=== PATIENT | female | born 1935 | race Caucasian/White ===

== ENCOUNTER 2016-12-31 13:54 | Emergency (ER) | payer MEDICARE, MEDICAID ==
[~2016-12-31] VITALS: Ht 167.6 cm; Wt 117.9 kg
[~2016-12-31 13:54] MED LIST: ACETAMINOPHEN-H1 TA2 PO; ACTOS15 MG PO; ALKA-SELTZER AN1 CAP PO; ALPHAGAN-P 0.2%5 ML OP; AMARYL4 MG PO; ANACIN; ANACIN PO; ASPIRIN ADULT L81 M1 PO; ATENOLOL25 MG PO; BENTYL10 MG PO; CALCIUM ACETAT667 MG PO; CEFEPIME2 GM IV; CIPRO250 MG PO; COLACE100 MG PO; COZAAR25 MG PO; COZAAR50 MG PO; DIALYVITE 8001 TAB PO; DIALYVITE1 TAB PO; DULCOLAX5 M1 PO; DUONEB 3 MG/3 ML3 M1 INH; EPOGEN2000 U/ML; ERGOCALCIFER50000 IU PO; GLIPIZIDE XL5 M1 PO; GLIPIZIDE5 MG PO; GLUCOTROL5 MG PO; GLYBURIDE5 MG; GLYBURIDE5 MG PO; HUMALOG100 U/ML SC; HYDROCODONE/ACE1 T14 PO; IMODIUM2 MG PO; LOMOTIL 0.025 M1 TA1 PO; MAGNESIUM OXID400 MG PO; MASON NATURAL2000 IU PO; METOPROLOL SR50 MG PO; METOPROLOL SUCC50 M1 PO; METOPROLOL SUCC50 M2 PO; MICRONASE5 MG PO; MIDODRINE HCL10 MG PO; MIRALAX POWDER17 G1 PO; MIRALAX17 GM PO; MULTI VITAMINS1 TAB PO; NEPHROCAPS1 SGL PO; NORCO 325 MG-51 TAB PO; OSCAL,OYSTER S500 MG; OYSTER SHELL C500 M2 PO; PHOS LO667 MG PO; PHOSLO667 M1; PHOSLO667 M1 PO; PHOSLO667 MG PO; PROTONIX TR40 MG PO; SENSIPAR30 MG PO; SONATA10 MG PO; SYMBICORT1 AE1 IH; TENORMIN25 MG PO; TRAMADOL HCL50 MG PO; TRIPHROCAPS PO; TYLENOL650 M1 PO; VANCOCIN HCL500 MG IV; VICODIN 5/500 505 MG PO; VICODIN ES 7501 TA1 PO; VITAMIN B12-FO1 EACH PO; VITAMIN C500 MG PO; VITAMIN D22000 UNIT PO; VITAMIN D50000 I3 PO; XALATAN 0.005%2.5 ML OD; XANAX0.25 MG PO; ZINC SULFATE PO; ZOFRAN ODT4 MG SL; Zofran4 MG PO; [UNRECOGNIZED DRUG - OTHER]; [UNRECOGNIZED DRUG - OTHER] PO
[2016-12-31 13:59] VITALS: BP 97/46
[2016-12-31 15:08] LABS: BASO # 0.1 10*3/uL (0.0-0.1); BASO % 0.5 % (0.0-1.0); EOS # 0.4 10*3/uL (0.0-0.4); EOS % 2.9 % (1.0-4.0); HEMATOCRIT 30.7 % (37.0-47.0); HEMOGLOBIN 9.8 g/dl (12.0-16.0); IG # 0.2 10*3/uL (0.0-0.1); LYMPH # 1.3 10*3/uL (1.3-4.4); LYMPH % 9.7 % (27.0-41.0); MEAN CELL VOLUME 100.3 fl (81.0-99.0); MEAN CORPUSCULAR HGB CONC 31.9 g/dl (33.0-37.0); MEAN PLATELET VOLUME 10.4 fl (9.6-12.3); MONO # 1.2 10*3/uL (0.1-1.0); NEUT # 10.2 10*3/uL (2.3-7.9); NEUT % 76.6 % (47.0-73.0); PLATELET COUNT AUTOMATED 273 10*3/uL (130-400); RED BLOOD COUNT 3.06 10*6/uL (4.10-5.10); RED CELL DISTRI WIDTH 13.5 % (0-14.5); WHITE BLOOD COUNT 13.3 10*3/uL (4.8-10.8)
[2016-12-31 15:23] LABS: BILIRUBIN, TOTAL 0.2 mg/dl (0.2-1.0); POTASSIUM 3.8 mmol/L (3.5-5.1); TOTAL PROTEIN 7.4 gm/dL (6.4-8.2)
== END 2016-12-31 18:12 ==
LOC: ED 13:54
PROVIDERS: Registered Nurse
DX: N18.6 End stage renal disease (principal); Z88.0 Allergy status to penicillin; Z88.1 Allergy status to other antibiotic agents; Z88.2 Allergy status to sulfonamides; Z79.899 Other long term (current) drug therapy; Z79.82 Long term (current) use of aspirin; W07.XXXA Fall from chair, initial encounter; Y93.89 Activity, other specified; Y92.129 Unspecified place in nursing home as the place of occurrence of the external cause; Y99.9 Unspecified external cause status

== ENCOUNTER 2017-01-14 10:32 | Inpatient (IN) | payer MEDICARE, MEDICAID ==
[~2017-01-14] VITALS: Ht 172.7 cm; Wt 123.0 kg
--- NOTE | ~2017-01-14 | DS ---
[place], [place] DISCHARGE SUMMARY NAME: MANUEL CAMPOS [facility] #: [id number] UNIT #: [id number] ROOM: 510 DOCTOR: FREEDOM DEAN MD BIRTHDATE: [birth year] DOS: 01/16/2017 DISCHARGE DIAGNOSES: 1. The patient has significant chest pains from rib fractures from CPR. 2. The patient with episode of loss of consciousness and resuscitation. 3. Pacemaker placement. 4. Chronic hypotension. 5. End-stage kidney disease, the patient on hemodialysis. 6. Type 2 diabetes mellitus. 7. Bilateral knee pains and osteoarthritis. 8. History of glaucoma. 9. History of chronic pain syndrome. 10. Chronic gouty arthritis. 11. Adult failure to thrive and inability to ambulate. HOSPITAL COURSE: 1. The patient was at the dialysis center undergoing hemodialysis for 2 hours according to her when she became unresponsive and she underwent CPR for about 2 minutes when she woke up. The patient ended up having rib fractures apparently related to the CPR and had significant chest pains. The patient was brought to the Emergency Department and admitted and kept on a vendor specialist with a DNR-CC code status. The patient shows paced rhythm with 100% capture and Cardiology consult was obtained. The patient has done very well and is asymptomatic except for her significant chest pains whenever she moves or takes in a deep breath. The patient is already on Vicodin as needed for pain control and I am giving her a dose of Dilaudid prior to sending her back to the detention to keep her comfortable and I will keep her on p.r.n. morphine also to keep her comfortable at the detention. 2. End-stage kidney disease. The patient remains on hemodialysis 3 days a week. 3. Type 2 diabetes mellitus. Blood sugars appeared to be reasonably controlled. The patient was continued on hemodialysis. 4. The patient has leukocytosis with white cell count of 18,000 without any significant left shift, but she has no signs of infection at this time, no cough, no fever. Her blood cultures came out to be negative and she has no urinary symptoms. 5. CT of the chest, abdomen and pelvis showed bilateral rib fractures, but no pathology otherwise and the chest x-ray showed clear lungs. DISCHARGE MANAGEMENT: Morphine 5 mg every 4 hours as needed for pain control, midodrine 10 mg daily, aspirin 81 mg a day, glimepiride 4 mg a day, dicyclomine 10 mg t.i.d., calcium acetate 667 mg t.i.d. with meals, Vicodin p.r.n. and Ambien 5 mg at bedtime p.r.n. DISPOSITION: The patient is being sent back to [facility]. [place], [place] DISCHARGE SUMMARY NAME: MANUEL CAMPOS UNIT #: [id number] ROOM: [facility] DOCTOR: FREEDOM DEAN MD BIRTHDATE: [birth year] FREEDOM DEAN MD CM:ANDREA 1604 [id number] FREEDOM DEAN MD 01/16/17 2341 interface
--- NOTE | ~2017-01-14 | EKG ---
[place], [place] ELECTROCARDIOGRAM [id number] #: [id number] ROOM: [facility] DOCTOR: CK CALDERON MD BIRTHDATE: [birth year] DOS: 01/14/2017 TIME: 10:30 a.m. FINDINGS: Normal sinus rhythm, low voltage in limb leads, occasional atrial premature contraction. Poor precordial R-wave progression, abnormal electrocardiogram. CK CALDERON MD CM:EKGRPT:ELECTROCARDIOGRAM REPORT 50 36 CK CALDERON MD
--- NOTE | ~2017-01-14 | WRIGHTHP ---
[place], [place] PATIENT HISTORY AND PHYSICAL EXAM NAME: MANUEL CAMPOS [facility] #: [id number] UNIT #: [id number] ROOM: 510 DOCTOR: FREEDOM DEAN MD BIRTHDATE: [birth year] DOS: 01/15/2017 HISTORY OF PRESENT ILLNESS: The patient is an 81-year-old female with a past medical history of, 1. End-stage kidney disease, on hemodialysis. 2. Type 2 diabetes mellitus. 3. Adult failure to thrive and inability to ambulate. 4. Chronic hypotension. 5. History of bradycardia and pacemaker placement. 6. History of chronic gouty arthritis. 7. History of chronic pain syndrome. 8. History of glaucoma. 9. Bilateral knee pains and osteoarthritis. HOME MEDICATIONS: The patient takes midodrine, aspirin, glimepiride, dicyclomine, calcium, Tylenol, Vicodin, and Ambien. ALLERGIES: KNOWN ALLERGIES TO PENICILLIN, SULFA, BACTRIM. FAMILY HISTORY: Noncontributory. The patient with episode of loss of consciousness. The patient was thought to be hypotensive and a CPR was started, but the patient apparently woke up after 2 minutes of CPR. The patient was apparently a DNR-CC when she was undergoing hemodialysis at the dialysis center where she became hypotensive and unresponsive. The patient was brought to the Emergency Department and recommended for admission and further management. The patient remains in a paced rhythm and she is asymptomatic except for pain in her chest, which patient says she developed rib fractures from the CPR. The patient is not complaining of shortness of breath. No other GI or urinary symptoms. PHYSICAL EXAMINATION: GENERAL: Alert and oriented x 3. Generalized weakness, morbid obesity. HEENT AND NECK: Extraocular movements are intact. Sclerae are anicteric. Oral mucosa is moist and clean. No obvious facial weakness. Neck is supple without any lymphadenopathy. No thyromegaly. No JVD. No carotid arterial bruits. LUNGS: Clear to auscultation. No wheezing. No rhonchi. CARDIOVASCULAR SYSTEM: Heart rate is regular in rate and rhythm. S1 and S2 normally audible. No significant murmur or any other abnormal cardiac sounds. ABDOMEN: Soft, nontender. No obvious organomegaly. Bowel sounds are present. No obvious herniation. EXTREMITIES: Without significant cyanosis or edema. Warm to touch. CENTRAL NERVOUS SYSTEM: Alert and oriented x 3. Cranial nerves II-XII are intact. Speech is normal. The patient is able to move all extremities. Normal muscle strength. Deep tendon reflexes are equal on both sides. Plantars were downgoing. LABORATORY DATA: Leukocytosis. White cell count 18,000; hemoglobin 9.6. Lactic acid level was normal. IMPRESSION: The patient with episode of loss of consciousness. Apparently [place], [place] PATIENT HISTORY AND PHYSICAL EXAM NAME: MANUEL CAMPOS [facility] #: [id number] UNIT #: [id number] ROOM: [facility] DOCTOR: FREEDOM DEAN MD BIRTHDATE: [birth year] underwent CPR for 2 minutes, but she woke up. The patient has history of chronic hypotension, now blood pressure generally stays in the low and she has a pacemaker in place with 100% capture. The patient maintains a DNR comfort care code status and she is doing well now except for chest pain where she had suffered bilateral rib fractures. 1. Bilateral rib fractures, apparently probably secondary to CPR with some pain. 2. End-stage kidney disease and kidney failure. The patient on hemodialysis. The patient was seen by Dr. Abdalla, her town marshal. 3. Type 2 diabetes mellitus, we will monitor blood sugars and treat accordingly. The patient to be kept on a no concentrated sweet diet. FREEDOM DEAN MD CM:HISPHYS:PATIENT HISTORY AND PHYSICAL EXAMINATION 52 49 FREEDOM DEAN MD 01/15/172150 interface
--- NOTE | ~2017-01-14 | CON ---
[place], [place] REPORT OF CONSULTATION NAME: MANUEL CAMPOS [facility] #: [id number] UNIT #: [id number] ROOM: 510 DOCTOR: JUN COULTER MD BIRTHDATE: [birth year] DOS: 01/15/2017 NEPHROLOGY CONSULTATION REASON FOR CONSULTATION: Management of dialysis. HISTORY OF PRESENT ILLNESS: The patient is an 81-year-old female. She has a past medical history of end-stage renal disease. She undergoes dialysis Tuesday, Tuesday and Tuesday at the [facility] under the care of our practice of [facility]. She typically sees my partner, Dr. Dior. The patient has a right tunneled dialysis catheter for access and had a rather recent right upper extremity AV graft created. She has a history of diabetes, glaucoma, gout, anemia, vitamin D deficiency and chronic hypotension as well as hyperphosphatemia. Apparently, she was sent to the hospital from dialysis yesterday following a cardiac arrest. She apparently did receive CPR and then woke up and was transferred to the ER. She is being admitted for further care. She was awake and alert and is complaining of pain and difficulty breathing because of the chest compressions. Apparently, she has some rib fractures. She denied nausea, vomiting, fevers, chills or night sweats. Exact details of what happened in the cardiac arrest is not quite clear. She did not complete her entire dialysis. ALLERGIES: LISTED TO PENICILLIN, BACTRIM, AND SULFA DRUGS. MEDICATIONS: Medications were reviewed and listed in the chart/records. PAST MEDICAL HISTORY: 1. End-stage renal disease on hemodialysis as stated above. 2. Anemia of chronic disease. 3. Hyperphosphatemia. 4. Pacemaker placement. 5. Diabetes. 6. Chronic hypotension. 7. Tunneled dialysis catheter placement. 8. Recent right upper extremity AV graft. FAMILY HISTORY: Negative for chronic kidney disease, otherwise noncontributory. SOCIAL HISTORY: No current tobacco, alcohol or illicit drugs. REVIEW OF SYSTEMS: As per HPI, otherwise a 10-point review of systems was reviewed and was negative. PHYSICAL EXAMINATION: VITAL SIGNS: Temperature is 97.8, pulse 74, respiratory rate 20, blood pressure 100/48. GENERAL: She is awake, alert, in no acute distress. HEENT: Shows no JVD. Sclerae are anicteric. Mucous membranes appear dry. Pharynx is clear. NECK: Supple. Trachea is midline. No neck lymphadenopathy. There is no [place], [place] REPORT OF CONSULTATION NAME: MANUEL CAMPOS UNIT #: [id number] ROOM: [facility] DOCTOR: JUN COULTER MD BIRTHDATE: [birth year] thyromegaly. LUNGS: Diminished breath sounds. There is no appreciable wheeze. She is not using accessory muscles of respiration. HEART: Normal S1, S2. No rub, thrill or gallop. ABDOMEN: Soft, nontender. There is no organomegaly or rigidity. There is no rebound or guarding. There is no CVA tenderness. EXTREMITIES: Had trace lower extremity edema. There was noted right upper extremity edema. Distal pulses are 2+. SKIN: Showed no overt rash. There is no petechiae or purpura. Skin temperature is warm. NEUROLOGIC: She is awake, alert and following commands. LABORATORY DATA: Hemoglobin 9.6, white count of 18.1, platelets 249. Lactic acid was 1.8. BUN 16, creatinine of 5.0, potassium 3.5, sodium 137, these labs were drawn yesterday. IMPRESSION: 1. End-stage renal disease on hemodialysis Tuesday, Tuesday and Tuesday through a tunneled dialysis catheter. 2. Anemia of chronic disease. 3. Syncopal episode/cardiac arrest, details unclear. 4. Chronic hypotension. 5. Leukocytosis. 6. Rib fractures bilaterally. PLAN: 1. We will continue dialysis as per her normal schedule. We will attempt to use her AV graft if feasible as per protocol of the dialysis unit. 2. Dose meds for end-stage renal disease. 3. Give as needed erythropoietin stimulating agents with dialysis. 4. If her leukocytosis persists, check blood cultures. 5. Continue supportive care. Pain control for her fractures and rib pain. Thank you for this consultation. We will follow with you. JUN COULTER MD CM:CONSTR:REPORT OF CONSULTATION 1442 01/15/17 1601 interface
[2017-01-14 10:32] VITALS: BP 88/44
[2017-01-14 11:03] LABS: HEMATOCRIT 30.2 % (37.0-47.0); HEMOGLOBIN 9.6 g/dl (12.0-16.0); MEAN CELL VOLUME 101.7 fl (81.0-99.0); MEAN CORPUSCULAR HGB 32.3 pg (27.0-31.0); MEAN CORPUSCULAR HGB CONC 31.8 g/dl (33.0-37.0); PLATELET COUNT AUTOMATED 249 10*3/uL (130-400); RED BLOOD COUNT 2.97 10*6/uL (4.10-5.10); RED CELL DISTRI WIDTH 15.2 % (0-14.5); WHITE BLOOD COUNT 18.1 10*3/uL (4.8-10.8)
[2017-01-14 11:21] VITALS: BP 92/35
[2017-01-14 11:21] LABS: BILIRUBIN, TOTAL 0.3 mg/dl (0.2-1.0); C-REACTIVE PROTEIN 5.87 MG/DL (0-0.3); CKMB 0.9 ng/ml (0.5-3.6); MAGNESIUM 2.2 mg/dL (1.5-2.1); POTASSIUM 3.5 mmol/L (3.5-5.1)
[2017-01-14 11:24] LABS: PROTHROMBIN TIME 10.5 SECONDS (9.0-12.4); TROPONIN I 0.103 ng/ml (<0.045)
[2017-01-14 11:25] LABS: EOSINOPHIL # 1.1 10*3/uL (0-0.4); EOSINOPHILS 6 % (1-4); LYMPHOCYTE # 3.4 10*3/uL (1.3-4.4); MONOCYTE # 0.9 10*3/uL (0.1-1.0); NEUTROPHIL # 12.7 10*3/uL (2.3-7.9); NEUTROPHILS 70 % (47-73); PLATELET SUFFICIENCY NORMAL (NORMAL); TOTAL CELLS COUNTED 100 #CELLS
[2017-01-14 11:51] VITALS: BP 132/88
[2017-01-14 12:41] VITALS: BP 97/28
[2017-01-14 13:00] LABS: LA>2 REFLEX 2 HR DRAW NOW
[2017-01-14 13:16] VITALS: BP 86/52
[2017-01-14 13:22] LABS: LA>2 RFLX FOLLOW UP AT 2 HRS 2.2 mmol/L (0.4-2.0)
[2017-01-14] MEDS ORDERED: MAPAP325 MG PO (13:29)
[2017-01-14] MEDS ORDERED: HYDROCODONE BIT1 T11 PO ×2 (13:29→16:36)
[2017-01-14] MEDS ORDERED: ASPIRIN81 M1 PO (13:29)
[2017-01-14] MEDS ORDERED: DAILYVITE (13:30)
[2017-01-14] MEDS ORDERED: RENAL PO (13:31)
[2017-01-14] MEDS ORDERED: CALCIUM ACETAT667 M2 PO (13:31)
[2017-01-14] MEDS ORDERED: VITAMIN D50000 I3 PO (13:32)
[2017-01-14] MEDS ORDERED: DICYCLOMINE HCL10 MG PO (13:32)
[2017-01-14] MEDS ORDERED: AMARYL4 MG PO (13:32)
[2017-01-14] MEDS ORDERED: MIDODRINE HCL10 MG PO (13:33)
[2017-01-14 15:12] LABS: LA>2 REFLEX 4 HR DRAW NOW
[2017-01-14 16:00] VITALS: BP 73/40
[2017-01-15] VITALS (8 sets, daily range): BP systolic 83–133; BP diastolic 45–88
[2017-01-16 00:11] VITALS: BP 92/68
[2017-01-16 06:22] LABS: HEMATOCRIT 28.6 % (37.0-47.0); HEMOGLOBIN 8.9 g/dl (12.0-16.0); MEAN CELL VOLUME 101.8 fl (81.0-99.0); MEAN CORPUSCULAR HGB 31.7 pg (27.0-31.0); MEAN CORPUSCULAR HGB CONC 31.1 g/dl (33.0-37.0); MEAN PLATELET VOLUME 10.9 fl (9.6-12.3); NUCLEATED RED BLOOD CELL 0.1 % (0.0-0.0); PLATELET COUNT AUTOMATED 248 10*3/uL (130-400); RED BLOOD COUNT 2.81 10*6/uL (4.10-5.10); WHITE BLOOD COUNT 18.4 10*3/uL (4.8-10.8)
[2017-01-16 06:47] LABS: BASOPHIL # 0.4 10*3/uL (0-0.1); BASOPHILS 2 % (0-1); EOSINOPHIL # 0.4 10*3/uL (0-0.4); EOSINOPHILS 2 % (1-4); LYMPHOCYTE # 4.4 10*3/uL (1.3-4.4); MONOCYTE # 0.7 10*3/uL (0.1-1.0); MYELOCYTES 1 % (0-0); NEUTROPHIL # 12.3 10*3/uL (2.3-7.9); NEUTROPHILS 67 % (47-73); PLATELET SUFFICIENCY NORMAL (NORMAL); POLYCHROMASIA SLIGHT; TOTAL CELLS COUNTED 100 #CELLS
[2017-01-16 08:00] VITALS: BP 98/49
[2017-01-16 12:00] VITALS: BP 103/36
[2017-01-16] MEDS ORDERED: MORPHINE S20 MG/1 ML PO (15:42)
[2017-01-16 16:00] VITALS: BP 94/56
== END 2017-01-16 18:39 | DRG 640 ==
LOC: ED 10:32 → EDHOLD 15:11 → 5E 15:28
PROVIDERS: Internal Medicine; Student in an Organized Health Care Education/Training Program
DX: E86.0 Dehydration (principal); N18.6 End stage renal disease; S22.43XA Multiple fractures of ribs, bilateral, initial encounter for closed fracture; I12.0 Hypertensive chronic kidney disease with stage 5 chronic kidney disease or end stage renal disease; I95.9 Hypotension, unspecified; I95.89 Other hypotension; E11.22 Type 2 diabetes mellitus with diabetic chronic kidney disease; E83.39 Other disorders of phosphorus metabolism; D72.829 Elevated white blood cell count, unspecified; Z99.2 Dependence on renal dialysis; M1A.9XX0 Chronic gout, unspecified, without tophus (tophi); G89.4 Chronic pain syndrome; Z88.1 Allergy status to other antibiotic agents; Z88.0 Allergy status to penicillin; Z88.2 Allergy status to sulfonamides; Z95.0 Presence of cardiac pacemaker; D63.8 Anemia in other chronic diseases classified elsewhere; R62.7 Adult failure to thrive

== ENCOUNTER 2017-02-04 10:44 | Inpatient (IN) | payer MEDICARE, MEDICAID ==
[~2017-02-04] VITALS: Ht 167.6 cm; Wt 122.5 kg
[2017-02-04] VITALS (10 sets, daily range): BP systolic 70–153; BP diastolic 18–120
--- NOTE | ~2017-02-04 | CON ---
[place], [place] REPORT OF CONSULTATION NAME: MANUEL CAMPOS [facility] #: [id number] UNIT #: [id number] ROOM: [place] [address] DOCTOR: JULIETTE SIERRA MD BIRTHDATE: [birth year] DOS: 02/04/2017 HISTORY OF PRESENT ILLNESS: This is an 81-year-old patient who has presented to the Emergency Room with lower GI bleed. Apparently, the patient was receiving hemodialysis and suddenly large volume of red blood was discharged from her and the patient had to be admitted through the Emergency Room. I received a call from the Emergency Room what might have concern. Bilirubin was 0.7. Her blood cultures were in past negative. Hepatic function test unremarkable nearly. CBC today, white blood cells 14, H and H of 9 and 29, macrocytic indices with platelet count of 233. INR was 1.0. Lactic acid was 2.4. Comprehensive metabolic panel: Creatinine is 4.5, BUN 14, GFR of greater than 11. Magnesium 2.1. Liver function tests normal. C-reactive protein 2.6, myoglobin was 16. Chest x-ray was done. COPD, interstitial lung disease was noticed. PAST MEDICAL HISTORY: Obesity, diabetes mellitus, chronic renal failure, dialysis dependence, bradycardia, glaucoma. MEDICATIONS: Reviewed including aspirin. ALLERGIES: PENICILLIN AND SULFA. FAMILY HISTORY: Noncontributory. SOCIAL HISTORY: Nonsmoker, nonalcohol consumer. PAST SURGICAL HISTORY: Status post pacemaker, status post cataract, and hernia repair and dialysis fistula. REVIEW OF SYSTEMS: HEENT: Denies double vision, blurred vision. RESPIRATORY: Denies shortness of breath. CARDIOVASCULAR: Denies acute chest pain. DIGESTIVE SYSTEM: Melenic stool. PHYSICAL EXAMINATION: GENERAL: Obese patient, comfortable. VITAL SIGNS: Stable. HEENT: Head normocephalic, nontraumatic. Mouth and buccal mucosa benign. NECK: Supple. No thyromegaly. CHEST: Symmetric anatomy, equal expansion. No wheezes, no rhonchi. HEART: Normal sinus rhythm, no gallop, no murmur. ABDOMEN: Soft, obese. No hepato-organomegaly. Bowel sounds present. No pulsatile mass. EXTREMITIES: Trace pedal edema with stasis dermatitis bilaterally. NEUROLOGIC: Alert, oriented to time, place, and person. IMPRESSION: Lower gastrointestinal bleed, active, ruling out fast transit upper gastrointestinal bleed, dialysis dependence. Otherwise, as identified in paragraph of past medical and surgical history. [place], [place] REPORT OF CONSULTATION NAME: MANUEL CAMPOS UNIT #: [id number] ROOM: [place] [address] DOCTOR: MARIELA GUILLEN,JULIETTE BIRTHDATE: [birth year] PLAN AND DISCUSSION: Urgent endoscopic evaluation. I am going to proceed with colonoscopy. If no definitive results noticed, then we will assess the upper GI. JULIETTE SIERRA MD CM:CONSTR:REPORT OF CONSULTATION 1622 02/05/17 0842 interface
--- NOTE | ~2017-02-04 | WRIGHTHP ---
[place], [place] PATIENT HISTORY AND PHYSICAL EXAM NAME: MANUEL CAMPOS [facility] #: [id number] UNIT #: [id number] ROOM: [facility] DOCTOR: FREEDOM DEAN MD BIRTHDATE: [birth year] DOS: 02/05/2017 HISTORY OF PRESENT ILLNESS: The patient became hypotensive early this morning, systolic blood pressure dropping to 70. The patient was given fluid resuscitation as well as started on Levophed with improvement in blood pressure. The patient otherwise is mostly asymptomatic and no significant amount of external bleeding or rectal bleeding has been observed within the last 24 hours after the colonoscopy and EGD by Dr. Watkins where she was found to have an antral ulcer. Blood pressure 140/75, heart rate 78 beats per minute, breathing 16 times per minute, temperature 98 degrees Fahrenheit. The patient had presented with acute GI bleed and was sent directly to operation room and underwent EGD and colonoscopy by Dr. Watkins and was found to have an acute antral ulcer and blood in her colon. Following this, the patient was admitted and hydrated with normal saline. Her hemoglobin stayed stable around 8. It only dropped from 9-8.2 after admission despite of hydration, but her blood pressure dropped significantly this morning. The patient has poor IV access. Her blood pressure was 143/96, heart rate of 80 beats per minute, breathing 17 times per minute, temperature 98 degrees Fahrenheit. SOCIAL HISTORY: Denies smoking cigarettes, alcohol or any drug abuse. FAMILY HISTORY: Noncontributory. HOME MEDICATIONS: Aspirin, midodrine, MiraLax, vitamin D, Colace, Protonix, dicyclomine, Carafate, latanoprost eye drops, Alphagan eye drops, Vicodin p.r.n. PHYSICAL EXAMINATION: GENERAL: Alert, oriented, in no visible distress, has generalized weakness and obesity. HEENT AND NECK: Extraocular movements are intact. Sclerae are anicteric. Oral mucosa is moist and clean. No obvious facial weakness. Neck is supple without any lymphadenopathy. No thyromegaly. No JVD. No carotid arterial bruits. LUNGS: Clear to auscultation. No wheezing. No rhonchi. CARDIOVASCULAR SYSTEM: Heart rate is regular in rate and rhythm. S1 and S2 normally audible. No significant murmur or any other abnormal cardiac sounds. ABDOMEN: Soft, nontender. No obvious organomegaly. Bowel sounds are present. No obvious herniation. EXTREMITIES: Without significant cyanosis or edema. Warm to touch. CENTRAL NERVOUS SYSTEM: Alert and oriented x 3. Cranial nerves II-XII are intact. Speech is normal. The patient is able to move all extremities. Normal muscle strength. Deep tendon reflexes are equal on both sides. Plantars were downgoing. LABORATORY DATA: Hemoglobin dropped to 8.2 from 9 at admission. White cell count of 12,000, normal platelet count. Lactic acid level was 2.4 on admission and next level was normal at 1.9. [place], [place] PATIENT HISTORY AND PHYSICAL EXAM NAME: MANUEL CAMPOS [facility] #: [id number] UNIT #: [id number] ROOM: [facility] DOCTOR: FREEDOM DEAN MD BIRTHDATE: [birth year] IMPRESSION: The patient with acute upper GI bleed, blood loss anemia and hypotension being treated with hydration. The patient already underwent upper and lower endoscopies showing an antral ulcer and blood in the colon. The patient not showing any significant external signs of bleeding through her bowels, but her blood pressure has dropped low, which is being controlled with Levophed and hydration with normal saline. Further workup has been ordered with the CT of the abdomen and pelvis and chest by Dr. Watkins. There are no significant complaints of any abdominal pains or back pain signifying abdominal aneurysm complications. 1. Chronic kidney disease and kidney failure. The patient on hemodialysis. The patient will require extra hemodialysis after CT scan. 2. Type 2 diabetes mellitus. Blood sugars being monitored and treated. 3. The patient's pacemaker placement. The patient on a monitor and storage bin tender in the ICU. 4. History of adult failure to thrive and inability to ambulate and overall very poor health status. FREEDOM DEAN MD CM:HISPHYS:PATIENT HISTORY AND PHYSICAL EXAMINATION 1351 [id number] FREEDOM DEAN MD 02/07/17 0305 interface
--- NOTE | ~2017-02-04 | PR ---
[place], [place] PROGRESS NOTE [facility]: [id number] #: [id number] ROOM: [facility] DOCTOR: MARYLIN GUILLEN,JUN Armas BIRTHDATE: [birth year] DOS: 02/06/2017 NEPHROLOGY FOLLOWUP NOTE SUBJECTIVE: The patient was seen and examined. She remains in ICU on pressors. She is awake, alert. Denies shortness of breath, fevers, chills or night sweats. PHYSICAL EXAMINATION: VITAL SIGNS: Temperature is afebrile, pulse 79, respiratory rate 14, blood pressure was in the 140s, presently at the bedside. HEENT: Shows no JVD. LUNGS: Diminished breath sounds. No wheeze. HEART: Normal S1, S2. ABDOMEN: Soft, nontender. There is no organomegaly. EXTREMITIES: Showed no edema to trace edema. SKIN: Showed no rash. LABORATORY DATA: Hemoglobin 10.5, white count of 20,000, platelets 363. Sodium 139, potassium 3.5, CO2 of 27, BUN 19, creatinine 5.3, calcium is 8.6. IMPRESSION: 1. End-stage renal disease, on hemodialysis on Tuesday, Tuesday, Tuesday. The patient will have dialysis tomorrow as per her normal schedule. 2. Anemia with GI bleeding. Transfuse as needed. Continue erythropoietin stimulating agents with dialysis. 3. Leukocytosis. Blood cultures should be sent. She does have a tunneled dialysis catheter. Certainly there were concerns for bacteremia. 4. Shock with chronic hypotension. She currently is on pressors. Continue to wean as tolerated. JUN COULTER MD CM:PNTRANS [id number] JUN COULTER MD 02/07/17 0346 interface
--- NOTE | ~2017-02-04 | DS ---
[place], [place] DISCHARGE SUMMARY NAME: MANUEL CAMPOS [facility] #: [id number] UNIT #: [id number] ROOM: [facility] DOCTOR: FREEDOM DEAN MD BIRTHDATE: [birth year] DOS: 02/07/2017 DISCHARGE DIAGNOSES: 1. Acute upper gastrointestinal bleed with antral ulcer on EGD. 2. Sepsis, pneumonia, leukocytosis, hypotension, treated. 3. Overall poor health and adult failure to thrive with poor prognosis. 4. End-stage kidney disease with kidney failure, the patient on hemodialysis. 5. Vitamin D deficiency. 6. Chronic constipation. 7. Blood loss anemia, the patient is status post blood transfusion. 8. Type 2 diabetes mellitus. Blood sugars are monitored and treated. 9. Pacemaker placement. HOSPITAL COURSE: 1. The patient was admitted to [facility] with hypotension, systolic blood pressure of 70. The patient was given fluid for resuscitation and started on Levophed with improvement of blood pressure. The patient was found to have rectal bleeding and her hemoglobin had dropped, so she was given blood transfusion and Dr. Watkins took her for endoscopies and found an antral ulcer. The patient was treated for antral ulcer and has not shown significant external signs of bleeding per rectum anymore. Her hemoglobin has been stable after blood transfusion. 2. Chronic kidney failure and end-stage kidney disease, the patient on hemodialysis, which was continued during her stay at the hospital. 3. Type 2 diabetes mellitus. Blood sugars are being monitored and treated accordingly. 4. Pacemaker placement. The patient was kept on a social media sr strategy manager and in the ICU. 5. Advanced adult failure to thrive and inability to ambulate. Overall, very poor health status and poor long-term prognosis. 6. The patient had pneumonia on the chest x-ray and she was treated with antibiotics and later on CT scan showed no more lung infiltrates. CT of the chest, abdomen and pelvis was performed by Dr. Watkins, because of continued GI bleed and studies were normal. 7. Severe leukocytosis, apparently secondary to infection, was treated with antibiotics and leukocytosis is improving. 8. The patient has chronic hypotension and for further decrease in her blood pressure, she was started on Levophed and she had maintained her blood pressure very well on Levophed. The patient is being transferred to LTAC facility for continued management under care of site identification specialist, Dr. Moore. DISCHARGE MANAGEMENT: Maintain IV Levophed infusion to keep systolic blood pressure over 100, continue hemodialysis. The patient on IV cefepime 1 gram daily, IV vancomycin 1 gram every Tuesday, Tuesday and Tuesday, Alphagan eyedrops 0.2% 3 times a day in the right eye, latanoprost 1 drop in both eyes at bedtime, Carafate 1 gram before meals and at bedtime, dicyclomine 10 mg 3 times a day, Protonix 40 mg daily, calcium acetate 1334 mg before meals, Colace 100 mg daily, vitamin D 4000 units daily, ____ 17 grams daily, ProAmatine 5 mg every 8 hours. [place], [place] DISCHARGE SUMMARY NAME: MANUEL CAMPOS [facility] #: [id number] UNIT #: [id number] ROOM: [facility] DOCTOR: FREEDOM DEAN MD BIRTHDATE: [birth year] FREEDOM DEAN MD CM:DISCHARG [id number] FREEDOM DEAN MD 02/07/172322 interface
--- NOTE | ~2017-02-04 | O ---
[place], [place] OPERATIVE NOTE [facility]: [id number] UNIT #: [id number] ROOM: [place] [address] DOCTOR: JULIETTE SIERRA MD BIRTHDATE: [birth year] DOS: 02/04/2017 INDICATIONS: The patient has presented with GI bleed today undergoing investigation. PROCEDURE: Today's procedure part of investigation is colonoscopy. PREMEDICATION: Versed and Diprivan. SCOPE: Olympus forward-viewing colonoscope 10L video. REPORT: After putting the patient in the left lateral position and after application of lubricant to the scope, the scope was introduced; thereafter, under direct visualization, advanced through the length of colon without difficulty. Presence of the blood all the way to the hepatic flexure was identified. Beyond this area, no active bleeding, no visualization due to the presence of stool. The patient extubated, tolerated procedure well. IMPRESSION: Presence of blood in the colon. It appears that this patient has had upper GI bleed. We are going to proceed with feeding. We are going to treat all upper GI source of bleed, possible ulcer. We are going to hold aspirin, Carafate, and Protonix therapy is going to proceed. H and H in the morning. JULIETTE SIERRA MD CM:OPRECORD:OPERATIVE NOTE 1713 14 JULIETTE SIERRA MD 02/04/17 2016 interface
--- NOTE | ~2017-02-04 | PROC NOTE ---
[place], [place] PROCEDURE NOTE NAME: MANUEL CAMPOS UNIT #: [id number] ROOM: [place] [address] DOCTOR: TK VILLASEÑOR DO BIRTHDATE: [birth year] DOS: 02/05/2017 CONSULTING PHYSICIAN: Dr. Uche Dean. PROCEDURE: Attempted right IJ and right femoral line. Right IJ was prepped and draped in sterile fashion. Vein was identified on ultrasound. Needle advanced, vein was cannulated by needle, blood return was obtained. A guidewire was introduced, was unable to thread. It was decided that the patient's catheter was likely preventing insertion of guidewire, there is negligible blood loss. We relocated to the patient's right femoral line and central line was placed. Femoral area was prepped and draped in a sterile fashion, 1% lidocaine was used to anesthetize the surrounding skin. Vein was cannulated with a needle, adequate blood return was obtained. Guidewire was thread smoothly through the needle. Triple lumen was advanced and flushed. Flushing was verified in all three lumens. Lumen was secured in place. Blood loss was negligible. Patient tolerated the procedure well. TK VILLASEÑOR DO UCHE DEAN MD CM:PROCNOTE:PROCEDURE NOTE 1402 1419 TK VILLASEÑOR DO
--- NOTE | ~2017-02-04 | O ---
[place], [place] OPERATIVE NOTE [id number] UNIT #: [id number] ROOM: [place] [address] DOCTOR: MARIELA GUILLEN,JULIETTE BIRTHDATE: [birth year] DOS: 02/04/2017 INDICATIONS: The patient has presented to Emergency Room with GI bleed and was having copious blood per rectum on dialysis. This has prompted us to urgent endoscopic assessment for evaluation of source of bleed. The patient has been on aspirin. PROCEDURE: Today's procedure part of investigation is colonoscopy, panendoscopy. PREMEDICATION: Versed and Diprivan. SCOPE: Olympus forward-viewing gastroscope Q10 video. REPORT: After putting the patient in the left lateral position and after application of lubricant to the scope, the scope was introduced. Thereafter, under direct visualization, I advanced through the length of esophagus without difficulty. Esophagus cervicothoracic distally carefully examined. Gastric pouch was entered. Evidence of gastritis, antral ulceration identified. Antrum was biopsied from the margin of the ulcer. Photographic series obtained. Duodenal bulb, second and third part within normal limits. The patient extubated, tolerated procedure well. IMPRESSION: Antral ulcer, status post biopsy, gastritis. All could be secondary to aspirin, ulcers size 1.5 x 1.5 cm. PLAN AND DISCUSSION: We are going to keep the patient on Protonix 40 mg daily. We are going to address with trial of Carafate slurry while she is inpatient. We are going to proceed with colonoscopy. JULIETTE SIERRA MD CM:OPRECORD:OPERATIVE NOTE 1713 09 JULIETTE SIERRA MD 02/04/172009 interface
--- NOTE | ~2017-02-04 | PR ---
[place], [place] PROGRESS NOTE NAME: MANUEL CAMPOS UNIT #: [id number] ROOM: [facility] DOCTOR: AZEB BARRY MD BIRTHDATE: [birth year] DOS: 02/07/2017 REASON FOR VISIT: Hypotension. SUBJECTIVE: The patient is getting a dialysis, no acute distress. Denies any chest pain or shortness of breath. No nausea, no palpitation, no dizziness. No fever or chills. No cough or hemoptysis. No tingling, numbness or weakness. REVIEW OF SYSTEMS: Review of the 8 systems negative except as mentioned above. PHYSICAL EXAMINATION: VITAL SIGNS: Blood pressure 133/62, pulse 72. GENERAL: Alert, comfortable, in no acute distress. HEENT: Pupils are round and no jaundice. Tongue was moist and pharynx clear. NECK: Supple, no distended neck veins, no carotid bruit. CHEST: Nontender. LUNGS: Few scattered rhonchi, anteriorly. ABDOMEN: Morbidly obese. Bowel sounds normal. EXTREMITIES: Showed edema, mostly lymphedema. Distal pulses are unable to palpate, fair. NEUROLOGIC: The patient is alert. No focal neurologic deficit. RECTAL: Deferred. GENITOURINARY: Deferred. IMPRESSION: 1. Hypotension, resolved. 2. Anemia with acute gastrointestinal bleed, stable. 3. History of coronary artery disease. 4. End-stage renal disease, on hemodialysis. 5. Diabetes. 6. Morbid obesity. 7. History of orthostasis. RECOMMENDATIONS: 1. Her blood pressure and heart rate are stable. 2. She was on only aspirin at home for her coronary artery disease and no beta blockers or CAITLIN due to her orthostasis. 3. Continue current medication. 4. 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 5. Dr. Aparicio wants [facility] to follow her during this admission. 6. Blood pressures are stable. I would recommend adding the low-dose beta blockers and CAITLIN inhibitors. [place], [place] PROGRESS NOTE NAME: MANUEL CAMPOS UNIT #: [id number] ROOM: [facility] DOCTOR: AZEB BARRY MD BIRTHDATE: [birth year] AZEB BARRY MD CM:LINDA 225 [id number] AZEB BARRY MD 02/08/17 1759 interface
--- NOTE | ~2017-02-04 | PR ---
[place], [place] PROGRESS NOTE NAME: MANUEL CAMPOS UNIT #: [id number] ROOM: [facility] DOCTOR: FREEDOM DEAN MD BIRTHDATE: [birth year] DOS: 02/06/2017 SUBJECTIVE: The patient awake, alert, appears comfortable. OBJECTIVE: VITAL SIGNS: Blood pressure 90/65, heart rate 84 beats and breathing 21 times per minute, temperature 98.2 degrees Fahrenheit. GENERAL APPEARANCE: The patient is alert and oriented x 3. Obesity and generalized weakness. HEENT AND NECK: Exam within normal limits. CARDIOVASCULAR SYSTEM: Heart rate is regular in rate and rhythm. S1 and S2 normally audible. LUNGS: Clear to auscultation. ABDOMEN: Soft, nontender. No obvious organomegaly. Bowel sounds are present. EXTREMITIES: Without significant cyanosis or edema. IMPRESSION: 1. Acute gastrointestinal bleed with stable H and H now, after blood transfusion, hemoglobin improved to 10.5. 2. Leukocytosis with white cell count elevated at 20,000 from uncertain etiology. We will get an ID consult for help with management. 3. CT of the chest, abdomen and pelvis with contrast without significant abnormality. Nephrology informed that Radiology would like to have a hemodialysis schedule today because she had IV contrast for the CAT scan yesterday. 4. Possibility of pneumonia developing on the chest x-ray, but not confirmed on the CT of the chest. 5. End-stage kidney failure, renal failure. The patient on hemodialysis, followed by Nephrology. 6. Vitamin D deficiency, treated with supplements. 7. Chronic constipation, treated with Colace. 8. Acute gastrointestinal bleed with antral ulcer, being treated with IV Protonix and Carafate. Dr. Watkins is following. 9. Persistent hypotension, being followed by Cardiology, Dr. Cerna. The patient on Levophed to maintain systolic blood pressure over 100. [place], [place] PROGRESS NOTE NAME: MANUEL CAMPOS UNIT #: [id number] ROOM: [facility] DOCTOR: FREEDOM DEAN MD BIRTHDATE: [birth year] FREEDOM DEAN MD CM:PNTRANS [id number] FREEDOM DEAN MD 02/07/17 0344 interface
--- NOTE | ~2017-02-04 | EKG ---
[place], [place] ELECTROCARDIOGRAM REPORT NAME: MANUEL CAMPOS UNIT #: [id number] ROOM: [place] [address] DOCTOR: CK CALDERON MD BIRTHDATE: [birth year] DOS: 02/04/2017 TIME: 11:33 a.m. Wondering atrial pacemaker. Defective EKG with missing leads V4 and V6. Probable old anterior wall myocardial infarction. Probable old inferior wall myocardial infarction. Right axis deviation. Frequent PVCs. Abnormal electrocardiogram. CK CALDERON MD CM:EKGRPT:ELECTROCARDIOGRAM REPORT 13 05 CK CALDERON MD
--- NOTE | ~2017-02-04 | PR ---
[place], [place] PROGRESS NOTE NAME: MANUEL CAMPOS [facility] #: [id number] UNIT #: [id number] ROOM: [facility] DOCTOR: CK CALDERON MD BIRTHDATE: [birth year] DOS: SUBJECTIVE: The patient was seen at her bedside in the intensive care unit today for followup of hypotension. She is an 81-year-old woman who does have a history of sick sinus syndrome with a pacemaker in place. The patient presented to the hospital from the Dialysis Unit after having a large bright red stools with clots. Endoscopy done shortly after admission showed a poor colon prep, but no obvious colon lesions. Her upper endoscopy did show gastritis and an ulcer. Her blood counts have been fairly stable and in fact, this morning, her hemoglobin is 10.5. She did receive transfusions yesterday. Despite this, she remains hypotensive and requires Levophed for maintenance of an adequate mean arterial pressure. The patient is somewhat confused today and complains mostly of back pain. She denies chest pain or shortness of breath at rest. PHYSICAL EXAMINATION: VITAL SIGNS: Her pulse is 84 and fairly regular. Blood pressure was 92/70 when she was off of Levophed. With Levophed her systolic pressure stuart to 130. She is afebrile. She weighs 122.5 kilograms with a body mass index of 43.6. NECK: Supple. She has no obvious jugular distention. Carotids are full. LUNGS: Respirations are unlabored. She does have decreased breath sounds with rales at the bases. HEART: A regular rhythm with frequent premature beats. She has a fourth heart sound. No obvious murmurs are present. ABDOMEN: Soft and normally active. EXTREMITIES: Showed trace ankle edema. Her right arm is fairly swollen. LABORATORY STUDIES: Today show hemoglobin of 10.5 with hematocrit 32. Her white count has jumped to 20,000, platelet count is 363,000. INR is 1.0. Sodium is 139, potassium 3.9, BUN 19, creatinine 5.25. Lactic acid level on admission was 2.4. Troponins have remained negative. As I review her records, I note that she does have hypotension on dialysis and is on midodrine prior to dialysis sessions. It is therefore likely that she does tend to run a low blood pressure and some of her hypotension may be related to autonomic neuropathy. On the other hand, her white count has risen and this may represent sepsis. PLAN: For now, we will continue to support her with pressors. I will place her on daily midodrine for the time being to help wean the Levophed. We will check a chest x-ray today for signs of fluid overload and pneumonia. Blood cultures will be obtained. Tomorrow, an echocardiogram has been ordered and further recommendations will depend upon the results of that study as well. We thank Dr. Aparicio for asking our advice regarding her care. [place], [place] PROGRESS NOTE NAME: MANUEL CAMPOS UNIT #: [id number] ROOM: [facility] DOCTOR: CK CALDERON MD BIRTHDATE: [birth year] CK CALDERON MD CM:PNTRANS [id number] CK CALDERON MD 02/06/172140 interface
--- NOTE | ~2017-02-04 | CON ---
[place], [place] REPORT OF CONSULTATION NAME: MANUEL CAMPOS [facility] #: [id number] UNIT #: [id number] ROOM: [place] [address] DOCTOR: CK CALDERON MD BIRTHDATE: [birth year] DOS: 02/05/2017 CARDIOLOGY CONSULTATION REASON FOR CONSULTATION: Hypotension. HISTORY OF PRESENT ILLNESS: This patient is an 81-year-old woman with a long history of diabetes mellitus with end-stage renal failure requiring dialysis. She also has a history of sick sinus syndrome with bradycardia and weakness. Because of this, she did receive a permanent pacemaker by Dr. Singh in October 2012. Dr. Singh has followed the pacemaker since then. She does attend dialysis 3 days a week. She did have a fistula in her left forearm, but this failed. A new fistula has replaced in her right arm, but has not yet matured. She is currently being dialyzed with a tunneled catheter in the right subclavian. Yesterday, she went to dialysis. At the completion of dialysis, she felt like she had to move her bowels and had a large bright red stool with clots. She was taken to the Emergency Room where she continued to have bright red stools. Endoscopy was done. Apparently blood was seen throughout the colon, but no active source of bleeding was seen. An upper endoscopy was also done and the patient was found to have an antral ulcer with gastritis. She was placed on antacids and antiplatelet agents were stopped. Today, her blood pressure did drop further even though her hemoglobin was relatively stable. There was concern that she had other causes for her hypotension and therefore, Cardiology was consulted. The patient denies any chest pain at this time. She is currently on a norepinephrine drip and her blood pressure has stabilized. She has received 1 unit of packed cells along with significant amounts of fluid for stabilization. It is notable that within the last month, she has had other episodes of hypotension, especially after dialysis. She was admitted to the hospital on 01/15/2017 after she became unresponsive at dialysis and received CPR. As best I can tell from the available records, she did not receive a cardioversion or defibrillation, but woke up whenever they began the CPR. PAST MEDICAL HISTORY: Includes 1. Diabetes mellitus. 2. End-stage renal disease, on hemodialysis. 3. Anemia of chronic disease. 4. Sick sinus syndrome with previous pacemaker placed by Dr. Watkins. A DDD pacemaker was placed in 2013. 5. Chronic hypotension. The patient does take midodrine prior to dialysis. 6. History of left arm dialysis access, which failed recently. The patient now has a tunneled catheter in her right neck as well as a new fistula in her right arm, which has not yet matured. [place], [place] REPORT OF CONSULTATION NAME: MANUEL CAMPOS UNIT #: [id number] ROOM: [place] [address] DOCTOR: CK CALDERON MD BIRTHDATE: [birth year] MEDICATIONS: Prior to admission, Dilaudid 2 mg IV on Mondays, Wednesdays and Fridays during dialysis, Alphagan eyedrops t.i.d., latanoprost eyedrops at bedtime, acetaminophen p.r.n., aspirin 325 mg daily, bisacodyl 5 mg p.o. daily, calcium acetate 660 mg capsules 2 capsules before meals, Bentyl 10 mg t.i.d., Colace 100 mg sublingually, vitamin D2 50,000 units every Tuesday, folic acid 1 mg daily, Amaryl 4 mg daily, hydrocodone with acetaminophen q.4 hours, midodrine 10 mg on Mondays, Wednesdays and Fridays with dialysis, polyethylene glycol daily and vitamin B complex daily. ALLERGIES: SHE LISTS ALLERGIES TO MULTIPLE MEDICATIONS INCLUDING PENICILLINS, SULFA DRUGS, AND TRIMETHOPRIM. REVIEW OF SYSTEMS: The patient denies diplopia or loss of vision. She has been weak. She does get lightheaded. She feels breathless if she is laid flat. She does have chest pain related to her recent CPR noted above. She does have some pleuritic chest pain. She denies orthopnea or PND. She denies hemoptysis or hematemesis. She has had bright red stools as noted. She denies palpitations. She denies nausea or vomiting. She has chronic peripheral edema and states that her hands have been swollen since hers hospitalization. The remainder of the review of systems is negative except as noted above. SOCIAL HISTORY: The patient does not smoke or consume alcohol. PHYSICAL EXAMINATION: GENERAL: The patient is an overweight elderly white female who is awake and alert. VITAL SIGNS: Pulse is 94 and regular. Blood pressure for awhile was 50/palp. She is now 120/70. She is afebrile. She weighs 122.5 kilograms with a body mass index of 43.6. HEENT: Normocephalic, atraumatic. Extraocular muscles are intact. Sclerae are clear. Pupils are equal, round and reactive to light. The oral mucosa is moist. Tongue is midline. NECK: Supple. I did not see any obvious jugular distention. Carotids are full. I heard no bruits. She had no neck or supraclavicular masses. No thyromegaly. LUNGS: Respirations were unlabored. Her chest had decreased breath sounds at the bases, but no wheezes or rales. CARDIOVASCULAR: Her heart had a regular rhythm. She had a fourth heart sound, but no third heart sound. The PMI was not palpable. She had no precordial heave, lift or thrill. She had no obvious murmurs. ABDOMEN: Obese, but otherwise benign, without masses, organomegaly or bruits. EXTREMITIES: Showed swelling of the hands much greater than the feet. LABORATORY DATA: Electrocardiogram was reviewed which showed wandering atrial pacemaker. There was evidence for previous inferior wall myocardial infarction and poor precordial R-wave progression. Her current hemoglobin is 8.8, on admission it was 9.0, last month when she was hospitalized here, it was 8.9 on discharge. Electrolytes show sodium 139, potassium 3.5, BUN 19, creatinine 5.25. Lactic acid was 2.4. Troponin was [place], [place] REPORT OF CONSULTATION NAME: MANUEL CAMPOS UNIT #: [id number] ROOM: [place] [address] DOCTOR: CK CALDERON MD BIRTHDATE: [birth year] normal. IMPRESSIONS: 1. Gastrointestinal bleeding evaluation in process. It appears that this was felt to be an upper gastrointestinal bleed. The patient had bright red blood in her stool and therefore she must have had a very rapid transit of her blood from the upper gastrointestinal to the rectum. This would indicate the likelihood of a very significant hemorrhage, even though the blood counts have not shown a dramatic fall as of yet. 2. Type 2 diabetes mellitus. 3. End-stage renal disease. 4. The patient has baseline hypotension, possibly due to an autonomic neuropathy. 5. Hypotension post-endoscopy. Most likely this is due to blood loss anemia in the setting of autonomic neuropathy and inability of the patient to compensate for the acute blood loss. PLAN: I agree with fluid and blood resuscitation. I would avoid antihypertensive medications. When available, we will review her echocardiogram to see if left ventricular function is a problem. At this point, her pacer function appears to be reasonable and will not be further explored. I have discussed the patient's care with her primary physician, Dr. Aparicio. I thank Dr. Aparicio for asking our advice regarding her management. CK CALDERON MD CM:CONSTR:REPORT OF CONSULTATION 1432 02/06/17 1244 interface
--- NOTE | ~2017-02-04 | CON ---
[place], [place] REPORT OF CONSULTATION NAME: MANUEL CAMPOS [facility] #: [id number] UNIT #: [id number] ROOM: [place] [address] DOCTOR: JUN COULTER MD BIRTHDATE: [birth year] DOS: 02/05/2017 NEPHROLOGY CONSULTATION REASON FOR CONSULTATION: Management of dialysis/patient known to you. HISTORY OF PRESENT ILLNESS: The patient is an 81-year-old female. She was just in the hospital a few weeks ago and actually, I had seen her consultation. She has a history of end-stage renal disease, on dialysis Tuesday, Tuesday and Tuesday at the [facility] under the care of our practice of [facility]. She typically sees my partner, Dr. Dior. She has a right tunneled dialysis catheter for access and does have the right upper extremity AV graft. She has a history of diabetes, glaucoma, gout, anemia, vitamin D deficiency and chronic hypotension and hyperphosphatemia. Recently, she was in the hospital following a cardiac arrest and had some broken ribs and what exactly transpired the past few weeks are not clear, but she seems to have recovered from that. Apparently, yesterday on dialysis, she developed bright blood per rectum and was sent to the hospital. She was admitted to the intensive care unit and is currently on pressors. There are plans to do a CAT scan apparently with the IV contrast as well. The patient was worrying about having the IV contrast study, but I had told her that this was okay from a renal standpoint. She is awake and alert. She states she only gets short of breath when lying lot. She denied current nausea or vomiting, fevers, chills or night sweats. She still has had some residual pain from her rib fractures. ALLERGIES: LISTED TO PENICILLIN, BACTRIM AND SULFA DRUGS. MEDICATIONS: Reviewed and listed on the chart. PAST MEDICAL HISTORY: 1. End-stage renal disease on hemodialysis as stated above. 2. Anemia of chronic disease. 3. Hyperphosphatemia. 4. Pacemaker placement. 5. Diabetes mellitus. 6. Chronic hypotension. 7. Tunneled dialysis catheter placement. 8. Right upper extremity arteriovenous graft. 9. Recent cardiac arrest. FAMILY HISTORY: Negative for chronic kidney disease, otherwise, noncontributory. SOCIAL HISTORY: No current tobacco, alcohol or illicit drugs. REVIEW OF SYSTEMS: As per HPI, otherwise a 10-point review of systems was reviewed and was negative. PHYSICAL EXAMINATION: VITAL SIGNS: Temperature is 97.6, pulse 94, respiratory rate 22, systolic blood [place], [place] REPORT OF CONSULTATION NAME: MANUEL CAMPOS UNIT #: [id number] ROOM: [place] [address] DOCTOR: JUN COULTER MD BIRTHDATE: [birth year] pressures currently in the 120s. GENERAL: She is awake, alert, critically ill, in no apparent distress. HEENT: Shows no JVD. Sclerae are anicteric. Mucous membranes are moist. Pharynx is clear. NECK: Supple. Trachea is midline. There is no neck lymphadenopathy. There is no thyromegaly. LUNGS: Diminished breath sounds. No appreciable wheezes. She is not using accessory muscles of respiration. HEART: Normal S1, S2. No rub, thrill or gallop. ABDOMEN: Soft, nontender. There is no organomegaly. There is no rigidity. There is no rebound or guarding. There is no CVA tenderness. EXTREMITIES: She has had trace edema. There is no lower extremity lymphadenopathy. Distal pulses are 2+. SKIN: Showed no overt rash. There is no petechiae or purpura. Skin temperature is warm. NEUROLOGIC: She is awake, alert and following commands. Cranial nerves intact. LABORATORY DATA: Hemoglobin 8.2, white count of 12.0, platelets of 288, BUN 19, creatinine 5.3. Sodium 139, potassium 3.5, CO2 of 26, calcium 8.6. IMPRESSION: 1. End-stage renal disease on hemodialysis Tuesday, Tuesday, Tuesday through a tunneled dialysis catheter. 2. Anemia of gastrointestinal bleed. 3. Shock with the chronic hypotension. 4. Diabetes mellitus. 5. Leukocytosis. PLAN: 1. Continue dialysis as per her normal schedule. She does not appear to need dialysis at this time. 2. Transfuse as felt needed. 3. Dose the medications for end-stage renal disease. 4. We will use as needed erythropoietin stimulating agents with dialysis. 5. Continue hemodynamic support. If she decompensates further to require multiple pressors, she may be unable to tolerate conventional intermittent dialysis and may require transfer for CRRT. Currently, we will continue to monitor her progress. As noted, a CT scan with contrast is planned. I stated that this was fine from a renal standpoint, she can have her dialysis on Tuesday. Thank you for this consultation. We will follow with you. [place], [place] REPORT OF CONSULTATION NAME: AMNUEL CAMPOS UNIT #: [id number] ROOM: [place] [address] DOCTOR: JUN COULTER MD BIRTHDATE: [birth year] JUN COULTER MD CM:CONSTR:REPORT OF CONSULTATION 1556 02/06/17 0815 interface
[~2017-02-04 10:44] MED LIST changes: +ASPIRIN81 M1 PO; +CALCIUM ACETAT667 M2 PO; +DAILYVITE; +DICYCLOMINE HCL10 MG PO; +HYDROCODONE BIT1 T11 PO; +MAPAP325 MG PO; +MORPHINE S20 MG/1 ML PO; +RENAL PO
[2017-02-04 11:56] LABS: BASO # 0.1 10*3/uL (0.0-0.1); BASO % 0.6 % (0.0-1.0); EOS # 0.8 10*3/uL (0.0-0.4); EOS % 5.6 % (1.0-4.0); HEMATOCRIT 29.2 % (37.0-47.0); IG # 0.1 10*3/uL (0.0-0.1); LYMPH # 2.4 10*3/uL (1.3-4.4); LYMPH % 16.7 % (27.0-41.0); MEAN CELL VOLUME 103.2 fl (81.0-99.0); MEAN CORPUSCULAR HGB 31.8 pg (27.0-31.0); MEAN CORPUSCULAR HGB CONC 30.8 g/dl (33.0-37.0); MEAN PLATELET VOLUME 10.9 fl (9.6-12.3); MONO # 1.2 10*3/uL (0.1-1.0); MONO % 8.6 % (3.0-9.0); NEUT # 9.5 10*3/uL (2.3-7.9); NEUT % 67.9 % (47.0-73.0); PLATELET COUNT AUTOMATED 233 10*3/uL (130-400); RED BLOOD COUNT 2.83 10*6/uL (4.10-5.10); RED CELL DISTRI WIDTH 15.2 % (0-14.5)
[2017-02-04 12:05] LABS: PROTHROMBIN TIME 10.6 SECONDS (9.0-12.4)
[2017-02-04 12:13] LABS: ALBUMIN 2.6 gm/dl (3.1-4.5); ALKALINE PHOSPHATASE 91 U/L (45-117); BILIRUBIN, TOTAL 0.2 mg/dl (0.2-1.0); BUN 14 mg/dl (7-24); C-REACTIVE PROTEIN 2.56 MG/DL (0-0.3); CARBON DIOXIDE 28 mmol/L (21-32); CHLORIDE 101 mmol/L (98-107); CKMB 0.7 ng/ml (0.5-3.6); CPK 14 U/L (26-192); EST GLOM FILT AFRICAN AMERICAN 11 ml/min; GLUCOSE 147 mg/dL (65-99); MAGNESIUM 2.1 mg/dL (1.5-2.1); POTASSIUM 3.5 mmol/L (3.5-5.1); SGOT/AST 13 IU/L (3-35); SGPT/ALT 10 U/L (12-78); SODIUM 139 mmol/L (136-145); TOTAL PROTEIN 6.2 gm/dL (6.4-8.2)
[2017-02-04 12:18] LABS: TROPONIN I < 0.015 ng/ml (<0.045)
[2017-02-04 13:54] LABS: LA>2 REFLEX 2 HR DRAW NOW
[2017-02-04] MEDS ORDERED: ASPIRIN325 M2 PO (17:20)
[2017-02-04] MEDS ORDERED: COLACE100 MG PO (17:22)
[2017-02-04] MEDS ORDERED: NATURE'S BLEND F1 MG PO (17:24)
[2017-02-04] MEDS ORDERED: XALATAN 2.5 ML2.5 ML OU (17:29)
[2017-02-04] MEDS ORDERED: MIRALAX POWDER255 G1 PO (17:31)
[2017-02-04] MEDS ORDERED: DILAUDID IV (17:33)
[2017-02-04] MEDS ORDERED: B COMPLETE1 EACH PO (17:33)
[2017-02-04] MEDS ORDERED: ALPHAGAN-P 0.2%5 ML OD (17:40)
[2017-02-04] MEDS ORDERED: BENTYL10 MG PO (17:41)
[2017-02-04] MEDS ORDERED: CALCIUM ACETAT667 MG PO (17:43)
[2017-02-04] MEDS ORDERED: DULCOLAX5 M1 PO (17:44)
[2017-02-05] VITALS (43 sets, daily range): BP systolic 50–140; BP diastolic 0–88
[2017-02-05 06:10] LABS: BASO # 0.1 10*3/uL (0.0-0.1); BASO % 0.6 % (0.0-1.0); EOS # 0.8 10*3/uL (0.0-0.4); EOS % 6.6 % (1.0-4.0); HEMATOCRIT 26.7 % (37.0-47.0); HEMOGLOBIN 8.2 g/dl (12.0-16.0); IG # 0.1 10*3/uL (0.0-0.1); LYMPH # 2.6 10*3/uL (1.3-4.4); LYMPH % 21.7 % (27.0-41.0); MEAN CELL VOLUME 102.7 fl (81.0-99.0); MEAN CORPUSCULAR HGB 31.5 pg (27.0-31.0); MEAN CORPUSCULAR HGB CONC 30.7 g/dl (33.0-37.0); MEAN PLATELET VOLUME 10.5 fl (9.6-12.3); MONO # 1.1 10*3/uL (0.1-1.0); MONO % 8.7 % (3.0-9.0); NEUT # 7.4 10*3/uL (2.3-7.9); NEUT % 61.7 % (47.0-73.0); PLATELET COUNT AUTOMATED 288 10*3/uL (130-400); RED CELL DISTRI WIDTH 15.2 % (0-14.5)
[2017-02-05 06:12] LABS: POTASSIUM 3.5 mmol/L (3.5-5.1)
[2017-02-05 13:52] LABS: HEMATOCRIT 28.6 % (37.0-47.0); HEMOGLOBIN 8.8 g/dl (12.0-16.0)
[2017-02-06] VITALS (91 sets, daily range): BP systolic 72–148; BP diastolic 25–102
[2017-02-06 05:59] LABS: BASO # 0.1 10*3/uL (0.0-0.1); BASO % 0.6 % (0.0-1.0); EOS # 0.3 10*3/uL (0.0-0.4); EOS % 1.6 % (1.0-4.0); HEMOGLOBIN 10.5 g/dl (12.0-16.0); IG # 0.2 10*3/uL (0.0-0.1); LYMPH # 1.6 10*3/uL (1.3-4.4); LYMPH % 8.2 % (27.0-41.0); MEAN CORPUSCULAR HGB 32.2 pg (27.0-31.0); MEAN CORPUSCULAR HGB CONC 32.8 g/dl (33.0-37.0); MEAN PLATELET VOLUME 9.9 fl (9.6-12.3); MONO # 1.3 10*3/uL (0.1-1.0); MONO % 6.7 % (3.0-9.0); NEUT # 16.4 10*3/uL (2.3-7.9); NEUT % 81.8 % (47.0-73.0); NUCLEATED RED BLOOD CELL 0.1 % (0.0-0.0); PLATELET COUNT AUTOMATED 363 10*3/uL (130-400); RED BLOOD COUNT 3.26 10*6/uL (4.10-5.10); RED CELL DISTRI WIDTH 14.6 % (0-14.5)
[2017-02-06 06:19] LABS: MEAN CELL VOLUME 98.2 fl (81.0-99.0)
[2017-02-07] VITALS (66 sets, daily range): BP systolic 10–137; BP diastolic 33–89
[2017-02-07 06:30] LABS: HEMOGLOBIN 10.2 g/dl (12.0-16.0); MEAN CELL VOLUME 95.7 fl (81.0-99.0); MEAN CORPUSCULAR HGB 31.5 pg (27.0-31.0); MEAN CORPUSCULAR HGB CONC 32.9 g/dl (33.0-37.0); MEAN PLATELET VOLUME 9.6 fl (9.6-12.3); PLATELET COUNT AUTOMATED 341 10*3/uL (130-400); RED BLOOD COUNT 3.24 10*6/uL (4.10-5.10); RED CELL DISTRI WIDTH 14.4 % (0-14.5); WHITE BLOOD COUNT 18.5 10*3/uL (4.8-10.8)
[2017-02-07 07:00] LABS: EOSINOPHIL # 1.7 10*3/uL (0-0.4); EOSINOPHILS 9 % (1-4); LYMPHOCYTE # 1.9 10*3/uL (1.3-4.4); MONOCYTE # 1.5 10*3/uL (0.1-1.0); NEUTROPHIL # 13.5 10*3/uL (2.3-7.9); NEUTROPHILS 73 % (47-73); PLATELET SUFFICIENCY NORMAL (NORMAL); TOTAL CELLS COUNTED 100 #CELLS
[2017-02-07] MEDS ORDERED: MIDODRINE HCL5 M1 PO (14:11)
[2017-02-07] MEDS ORDERED: Carafate1 GM/10 ML PO (14:11)
== END 2017-02-07 17:20 | DRG 871 ==
LOC: ED 10:44 → EDHOLD 13:48 → ICCU 13:48
PROVIDERS: Emergency Medicine; Internal Medicine; Internal Medicine Gastroenterology
PROC: 0DB68ZX Excision of Stomach, Via Natural or Artificial Opening Endoscopic, Diagnostic (ICD-10-PCS; principal; 2017-02-04)
PROC: 0DJD8ZZ Inspection of Lower Intestinal Tract, Via Natural or Artificial Opening Endoscopic (ICD-10-PCS; principal; 2017-02-04)
PROC: 5A1D00Z (ICD-10-PCS; 2017-02-05)
PROC: 06HM33Z Insertion of Infusion Device into Right Femoral Vein, Percutaneous Approach (ICD-10-PCS; 2017-02-05)
PROC: 30233N1 Transfusion of Nonautologous Red Blood Cells into Peripheral Vein, Percutaneous Approach (ICD-10-PCS; 2017-02-05)
DX: A41.9 Sepsis, unspecified organism (principal); K25.0 Acute gastric ulcer with hemorrhage; R57.9 Shock, unspecified; I13.2 Hypertensive heart and chronic kidney disease with heart failure and with stage 5 chronic kidney disease, or end stage renal disease; J18.9 Pneumonia, unspecified organism; N18.6 End stage renal disease; E11.22 Type 2 diabetes mellitus with diabetic chronic kidney disease; E11.43 Type 2 diabetes mellitus with diabetic autonomic (poly)neuropathy; I50.22 Chronic systolic (congestive) heart failure; Z68.41 Body mass index [BMI] 40.0-44.9, adult; R62.7 Adult failure to thrive; E55.9 Vitamin D deficiency, unspecified; D50.0 Iron deficiency anemia secondary to blood loss (chronic); K29.70 Gastritis, unspecified, without bleeding; K59.09 Other constipation; R26.2 Difficulty in walking, not elsewhere classified; E66.01 Morbid (severe) obesity due to excess calories; I25.10 Atherosclerotic heart disease of native coronary artery without angina pectoris; Z95.0 Presence of cardiac pacemaker; Z82.5 Family history of asthma and other chronic lower respiratory diseases; Z88.0 Allergy status to penicillin; Z88.2 Allergy status to sulfonamides; Z88.8 Allergy status to other drugs, medicaments and biological substances; Z79.899 Other long term (current) drug therapy; Z99.2 Dependence on renal dialysis; Z79.82 Long term (current) use of aspirin; Z82.3 Family history of stroke; Z88.1 Allergy status to other antibiotic agents

== ENCOUNTER 2017-04-11 12:58 | Inpatient (IN) | payer OTHER, MEDICARE, MEDICAID ==
[2017-04-11] VITALS (15 sets, daily range): BP systolic 75–172; BP diastolic 00–93
[~2017-04-11 12:58] MED LIST changes: +ALPHAGAN-P 0.2%5 ML OD; +ASPIRIN325 M2 PO; +B COMPLETE1 EACH PO; +Carafate1 GM/10 ML PO; +DILAUDID IV; +MIDODRINE HCL5 M1 PO; +MIRALAX POWDER255 G1 PO; +NATURE'S BLEND F1 MG PO; +XALATAN 2.5 ML2.5 ML OU
[2017-04-11] MEDS ORDERED: MARINOL2.5 M1 PO (13:02)
[2017-04-11] MEDS ORDERED: AMARYL2 MG PO (13:03)
[2017-04-11] MEDS ORDERED: GLUCAGON EMERGEN1 M1 IJ (13:04)
[2017-04-11] MEDS ORDERED: NOVOLOG10 ML IV (13:05)
[2017-04-11] MEDS ORDERED: FLORASTOR250 MG PO (13:07)
[2017-04-11 13:26] LABS: BASO # 0.1 10*3/uL (0.0-0.1); BASO % 0.3 % (0.0-1.0); EOS # 0.1 10*3/uL (0.0-0.4); EOS % 0.7 % (1.0-4.0); HEMOGLOBIN 11.9 g/dl (12.0-16.0); IG # 0.2 10*3/uL (0.0-0.1); LYMPH % 10.8 % (27.0-41.0); MEAN CELL VOLUME 95.5 fl (81.0-99.0); MEAN CORPUSCULAR HGB 29.9 pg (27.0-31.0); MEAN CORPUSCULAR HGB CONC 31.3 g/dl (33.0-37.0); MEAN PLATELET VOLUME 10.6 fl (9.6-12.3); MONO % 5.1 % (3.0-9.0); NEUT # 15.6 10*3/uL (2.3-7.9); NEUT % 81.9 % (47.0-73.0); NUCLEATED RED BLOOD CELL 0.2 % (0.0-0.0); PLATELET COUNT AUTOMATED 237 10*3/uL (130-400); RED BLOOD COUNT 3.98 10*6/uL (4.10-5.10); RED CELL DISTRI WIDTH 16.6 % (0-14.5)
[2017-04-11 13:42] LABS: ALBUMIN 2.5 gm/dl (3.1-4.5); BILIRUBIN, TOTAL 0.3 mg/dl (0.2-1.0); MAGNESIUM 1.9 mg/dL (1.5-2.1); POTASSIUM 3.6 mmol/L (3.5-5.1); TOTAL PROTEIN 5.9 gm/dL (6.4-8.2)
[2017-04-11 13:44] LABS: CKMB 0.8 ng/ml (0.5-3.6); TROPONIN I 0.028 ng/ml (<0.045)
[2017-04-11 13:49] LABS: THYROID STIM HORMONE (HS) 1.29 uIU/ml (0.358-4.75)
[2017-04-12] VITALS: BP 80/45
[2017-04-12 04:00] VITALS: BP 95/55
[2017-04-12] MEDS ORDERED: MORPHINE S20 MG/1 ML SL (07:11)
[2017-04-12] MEDS ORDERED: NOVAPLUS LORA2 MG/ML IV (07:11)
[2017-04-12 08:00] VITALS: BP 68/38
== END 2017-04-12 08:40 | disposition hospice, home (50) | DRG 314 ==
LOC: ED 12:58 → EDHOLD 15:52 → 4E 15:52
PROVIDERS: Internal Medicine
PROC: 5A1D00Z (ICD-10-PCS; principal; 2017-04-11)
DX: I95.9 Hypotension, unspecified (principal); N18.6 End stage renal disease; I13.2 Hypertensive heart and chronic kidney disease with heart failure and with stage 5 chronic kidney disease, or end stage renal disease; E11.22 Type 2 diabetes mellitus with diabetic chronic kidney disease; I50.22 Chronic systolic (congestive) heart failure; R62.7 Adult failure to thrive; M54.9 Dorsalgia, unspecified; G89.29 Other chronic pain; Z66 Do not resuscitate; Z51.5 Encounter for palliative care; H54.41 Blindness, right eye, normal vision left eye; M10.9 Gout, unspecified; M19.90 Unspecified osteoarthritis, unspecified site; E87.5 Hyperkalemia; D53.9 Nutritional anemia, unspecified; Z87.01 Personal history of pneumonia (recurrent); Z88.2 Allergy status to sulfonamides; Z88.0 Allergy status to penicillin; Z88.8 Allergy status to other drugs, medicaments and biological substances; Z79.899 Other long term (current) drug therapy; Z82.3 Family history of stroke; Z99.2 Dependence on renal dialysis; Z79.4 Long term (current) use of insulin; Z95.0 Presence of cardiac pacemaker; Z83.3 Family history of diabetes mellitus; Z83.6 Family history of other diseases of the respiratory system; Z98.42 Cataract extraction status, left eye; Z98.41 Cataract extraction status, right eye; Z91.81 History of falling

== ENCOUNTER 2017-04-12 08:51 | Inpatient (IN) | payer OTHER, MEDICARE, MEDICAID ==
[~2017-04-12] VITALS: Ht 165.1 cm; Wt 65.0 kg
[2017-04-12 08:40] VITALS: BP 68/38
[~2017-04-12 08:51] MED LIST changes: +AMARYL2 MG PO; +FLORASTOR250 MG PO; +GLUCAGON EMERGEN1 M1 IJ; +MARINOL2.5 M1 PO; +MORPHINE S20 MG/1 ML SL; +NOVAPLUS LORA2 MG/ML IV; +NOVOLOG10 ML IV
[2017-04-12 16:00] VITALS: BP 111/75
== END 2017-04-12 18:05 | disposition hospice, home (50) | DRG 871 ==
LOC: 4E 08:51
DX: A41.9 Sepsis, unspecified organism (principal); N18.6 End stage renal disease; I13.2 Hypertensive heart and chronic kidney disease with heart failure and with stage 5 chronic kidney disease, or end stage renal disease; G93.41 Metabolic encephalopathy; I50.22 Chronic systolic (congestive) heart failure; E11.22 Type 2 diabetes mellitus with diabetic chronic kidney disease; D53.9 Nutritional anemia, unspecified; G89.29 Other chronic pain; M54.9 Dorsalgia, unspecified; M10.9 Gout, unspecified; M19.90 Unspecified osteoarthritis, unspecified site; R62.7 Adult failure to thrive; Z66 Do not resuscitate; Z99.2 Dependence on renal dialysis; Z79.899 Other long term (current) drug therapy; Z79.4 Long term (current) use of insulin; Z95.0 Presence of cardiac pacemaker; Z82.3 Family history of stroke; Z88.0 Allergy status to penicillin; Z88.2 Allergy status to sulfonamides; Z88.1 Allergy status to other antibiotic agents